=== PATIENT | female | born 1985 | race Caucasian/White ===

== ENCOUNTER 2017-12-11 00:35 | Emergency (ER) | payer OTHER, SELFPAY ==
[2017-12-11] VITALS (7 sets, daily range): BP systolic 112–135; BP diastolic 72–83; PULSE 81–112; RESP 13–26; TEMP 36.8; O2SAT 95–100; BMI 30.4
[2017-12-11] MEDS: SODIUM CHLORIDE 0.9% 1,000 ML 1000 ML IV (01:00)
--- NOTE | 2017-12-11 01:01 | ED_ITS ---
HPI - Overdose General Chief Complaint: Unresponsive Stated Complaint: Overdose Time Seen by Provider: 12/11/17 00:57 Source: family Mode of arrival: other (Stretcher) Limitations: physical limitation History of Present Illness HPI Narrative: Dropped off, unresponsive in car after heroin 32-year-old female dropped off after heroin overdose. When she has responded to Narcan she admits that she just used too much and this was unintentional. No suicidal intentions. Denies any other drugs. complaint: accidental overdose Related Data Home Medications Medication Instructions Recorded Confirmed lisinopril 5 mg PO DAILY 12/11/17 12/11/17 oxycodone 5 mg PO BID 12/11/17 12/11/17 Allergies Allergy/AdvReac Type Severity Reaction Status Date / Time Penicillins AdvReac Mild Rash Verified 12/11/17 01:12 Review of Systems Review of Systems Unable to obtain due to medical condition [facility] Social History Smoking Status: Current every day smoker substance use type: opiates and IV drugs Exam Initial Vital Signs Initial Vital Signs: Vital Signs Pulse Rate 88 12/11/17 00:35 Respiratory Rate 15 12/11/17 00:35 Const General: intoxicated appearing, lethargic and other (Cyanotic) Nutritional Appearance: average body habitus and well nourished HENMT Head: normal to inspection and normocephalic Face and sinus: normal facial exam Mouth: other (Tongue piercing) Eyes Pupils: pinpoint bilaterally Neck Neck: normal visual inspection and full ROM Resp Effort & Inspection: decreased respiratory effort Auscultation: clear to auscultation bilaterally Cardio Rate: regular rate Heart Sounds: S1 normal and S2 normal GI Palpation: soft, No guarding and No tender Skin General: No erythema Rashes: no rashes Other: Minimal track boggs. Neuro General: alert, awake and oriented x3 Course Orders Ordered: ED Orders 12/11/17 01:10 Acetaminophen Stat Complete Blood Count AUTO DIFF Stat Comprehensive Metabolic Panel Stat Ethanol (ETOH) Stat Salicylate Stat 12/11/17 02:47 Urine Drug Screen, Rapid Stat 12/11/17 03:48 Acetaminophen Stat Discontinued Medications Sodium Chloride (Normal Saline 0.9%) 1,000 mls @ 1,000 mls/hr IV BOLUS ONE Stop: 12/11/17 01:56 Last Infusion: 12/11/17 05:24 Dose: 0 mls/hr Admin: 12/11/17 01:00 Dose: 1,000 mls/hr Naloxone HCl (Narcan) 2 mg IV NOW ONE Stop: 12/11/17 00:58 Last Admin: 12/11/17 01:02 Dose: 2 mg Naloxone HCl (Narcan) 2 mg NASAL NOW ONE Stop: 12/11/17 01:05 Last Admin: 12/11/17 01:27 Dose: 2 mg Ondansetron HCl (Zofran) 4 mg IV NOW ONE Stop: 12/11/17 01:05 Last Admin: 12/11/17 01:28 Dose: 4 mg Vital Signs - 8 hr 12/11/17 00:35 12/11/17 01:06 12/11/17 01:23 Temperature 98.3 F Pulse Rate 88 112 H 102 H Respiratory Rate 15 26 H 21 Blood Pressure 129/83 H Blood Pressure [Right Arm] 129/83 H Pulse Oximetry 100 100 12/11/17 01:55 12/11/17 03:06 12/11/17 03:43 Temperature Pulse Rate 97 H 81 Respiratory Rate 16 14 Blood Pressure Blood Pressure [Right Arm] 112/72 135/83 H Pulse Oximetry 100 100 99 12/11/17 04:57 Temperature Pulse Rate 83 Respiratory Rate 13 Blood Pressure Blood Pressure [Right Arm] 134/79 H Pulse Oximetry 95 MDM - Overdose Lab Data Attestation: I reviewed the patient's lab results. Result diagrams: 12/11/17 01:10 12/11/17 01:10 Lab Results 12/11/17 12/11/17 12/11/17 Range/Units 01:10 01:10 02:47 WBC 7.9 (4.5-11.0) X10^3/uL RBC 3.98 L (4.0-5.2) X10^6/uL Hgb 12.8 (12.0-16.0) g/dL Hct 37.7 (36-46) % MCV 94.8 (80-100) fL MCH 32.2 (26-34) PG MCHC 34.0 (30-36) % RDW 12.9 (11.6-14.8) % Plt Count 306 (150-400) X10^3/uL Neut % (Auto) 60.6 (50-75) % Lymph % (Auto) 30.0 (25-40) % [place] % (Auto) 7.1 (3-14) % Eos % (Auto) 1.7 L (2-4) % Baso % (Auto) 0.6 (0-2) % Neut # (Auto) 4800 (8316-1666) /uL Sodium 142 (137-145) mmol/L Potassium 3.6 (3.4-5.1) mmol/L Chloride 102 (98-107) mmol/L Carbon Dioxide 27 (22-32) mmol/L BUN 10 (7-17) mg/dL Creatinine 0.70 (0.52-1.04) mg/dL Estimated GFR > 60.0 (>60) mL/min BUN/Creatinine Ratio 14.3 (6-22) Glucose 120 H (70-100) mg/dL Calcium 9.5 (8.4-10.2) mg/dL Total Bilirubin 0.7 (0.2-1.3) mg/dL AST 266 H (14-36) IU/L ALT 452 H (9-52) IU/L Alkaline Phosphatase 98 (38-126) U/L Total Protein 7.4 (6.3-8.2) g/dL Albumin 4.5 (3.5-5.0) g/dL Globulin 2.9 (1.7-4.1) g/dL Albumin/Globulin Ratio 1.6 (1.0-2.8) Salicylates < 1.0 (<20) mg/dL Urine Opiates Screen Positive H (Negative) Ur Oxycodone Screen Positive H (Negative) Urine Methadone Screen Negative (Negative) Acetaminophen < 10 L (10-30) ug/mL Ur Barbiturates Screen Negative (Negative) U Tricyclic Antidepress Negative (Negative) Ur Phencyclidine Scrn Negative (Negative) Ur Amphetamines Screen Negative (Negative) U Methamphetamines Scrn Negative (Negative) Ur MDMA Scrn (Ecstasy) Negative (Negative) U Benzodiazepines Scrn Negative (Negative) Urine Cocaine Screen Negative (Negative) U Marijuana (THC) Screen Negative (Negative) Ethyl Alcohol < 10 mg/dL 12/11/17 Range/Units 03:48 WBC (4.5-11.0) X10^3/uL RBC (4.0-5.2) X10^6/uL Hgb (12.0-16.0) g/dL Hct (36-46) % MCV (80-100) fL MCH (26-34) PG MCHC (30-36) % RDW (11.6-14.8) % Plt Count (150-400) X10^3/uL Neut % (Auto) (50-75) % Lymph % (Auto) (25-40) % [place] % (Auto) (3-14) % Eos % (Auto) (2-4) % Baso % (Auto) (0-2) % Neut # (Auto) (9969-0896) /uL Sodium (137-145) mmol/L Potassium (3.4-5.1) mmol/L Chloride (98-107) mmol/L Carbon Dioxide (22-32) mmol/L BUN (7-17) mg/dL Creatinine (0.52-1.04) mg/dL Estimated GFR (>60) mL/min BUN/Creatinine Ratio (6-22) Glucose (70-100) mg/dL Calcium (8.4-10.2) mg/dL Total Bilirubin (0.2-1.3) mg/dL AST (14-36) IU/L ALT (9-52) IU/L Alkaline Phosphatase (38-126) U/L Total Protein (6.3-8.2) g/dL Albumin (3.5-5.0) g/dL Globulin (1.7-4.1) g/dL Albumin/Globulin Ratio (1.0-2.8) Salicylates (<20) mg/dL Urine Opiates Screen (Negative) Ur Oxycodone Screen (Negative) Urine Methadone Screen (Negative) Acetaminophen < 10 L (10-30) ug/mL Ur Barbiturates Screen (Negative) U Tricyclic Antidepress (Negative) Ur Phencyclidine Scrn (Negative) Ur Amphetamines Screen (Negative) U Methamphetamines Scrn (Negative) Ur MDMA Scrn (Ecstasy) (Negative) U Benzodiazepines Scrn (Negative) Urine Cocaine Screen (Negative) U Marijuana (THC) Screen (Negative) Ethyl Alcohol mg/dL [facility] Narrative Medical decision making narrative: Patient initially given some Narcan nasally with minimal response. IV obtain responded well to 2 mg of Narcan IV. Patient placed on CO2 detector and monitored for number of hours. Liver enzymes noted to be elevated. Possible co ingestion of Tylenol or other opiate medications. 2nd Tylenol level is negative. Patient likely contracted hepatitis. Patient more awake alert clinically sober. I have discussed the events of this evening with her along with her laboratory results. I recommended she be tested for hepatitis and HIV. I also recommended that she stop using. Understands and she is grateful. Discharge Plan Departure Patient Disposition: Home, Self-Care Clinical Impression: Opioid overdose, Elevated liver enzymes Discharge Date/Time: 12/11/17 05:45 Instructions: DI for Hepatitis C, DI for Drug Overdose in Adults Activity Restrictions/Additional Instructions: *You have been diagnosed with heroin overdose, elevated liver enzymes *What to do: Liver enzymes can be a sign of hepatitis. It is strongly suggested that you get tested not sure dirty needles *Follow up with your primary care provider in 2-3 days *Return to ER if you should have any new, worsening or concerning symptoms Prescriptions: No Action lisinopril 5 mg Tablet 5 mg PO DAILY RF: 0 oxycodone tablet 5 mg PO BID RF: 0 Referrals: Oliver Ortgea MD [Primary Care Provider] -
[2017-12-11] MEDS: NALOXONE 1 MG/ML SYRINGE 2 MG IV (01:02)
--- NOTE | 2017-12-11 01:02 | PC.NURSE ---
pt found unresponsive in the car. carodid pulse present, resp with jaw lift. pt removed from car and onto a stretcher by staff. In narcan given. IV placed by megan meyer and narcan iv given. pt came to and began to vomit. pt given zofran iv. pt calmed down and asked if Raffy is present. pt now cooperative and calm.
--- NOTE | 2017-12-11 01:21 | PC.NURSE ---
RT met staff in trauma rm 2. preped and used ambu bag to ventilate pt while rn team leader started an IV and gave narcan. RT stopped ventilating when pt became responsive and attempted to sit up. ETCO2 placed.
[2017-12-11 01:27] LABS: Hemoglobin 12.8 g/dL (12.0-16.0); Red Blood Cell Count 3.98 X10^6/uL (4.0-5.2); Red Cell Distribution Width 12.9 % (11.6-14.8)
[2017-12-11] MEDS: NALOXONE 0.4 MG/ML VIAL 2 MG NASAL (01:27)
[2017-12-11] MEDS: ONDANSETRON 4 MG/2 ML INJ IV (01:28)
[2017-12-11 01:30] LABS: Add Manual Diff / Slide Review NO; Basophils Percent Auto 0.6 % (0-2); Eosinophils Percent Auto 1.7 % (2-4); Hematocrit 37.7 % (36-46); Mean Corpuscular Hemoglobin 32.2 PG (26-34); Mean Corpuscular Volume 94.8 fL (80-100); Monocytes Percent Auto 7.1 % (3-14); Neutrophils Absolute Auto 4800 /uL (3000-5900); Neutrophils Percent Auto 60.6 % (50-75); Platelet Count 306 X10^3/uL (150-400); White Blood Cell Count 7.9 X10^3/uL (4.5-11.0)
[2017-12-11 01:32] LABS: Acetaminophen < 10 ug/mL (10-30); Alanine Aminotransferase 452 IU/L (9-52); Albumin 4.5 g/dL (3.5-5.0); Albumin Globulin Ratio 1.6 (1.0-2.8); Alkaline Phosphatase 98 U/L (38-126); Aspartate Aminotransferase 266 IU/L (14-36); BUN Creatinine Ratio 14.3 (6-22); Bilirubin Total 0.7 mg/dL (0.2-1.3); Blood Urea Nitrogen 10 mg/dL (7-17); Calcium 9.5 mg/dL (8.4-10.2); Carbon Dioxide 27 mmol/L (22-32); Chloride 102 mmol/L (98-107); Estimated Glomerular Filt Rate > 60.0 mL/min (>60); Ethanol (ETOH) < 10 mg/dL; Globulin 2.9 g/dL (1.7-4.1); Glucose 120 mg/dL (70-100); HEMOLYSIS < 15 (0-50); Potassium 3.6 mmol/L (3.4-5.1); Sodium 142 mmol/L (137-145); Total Protein 7.4 g/dL (6.3-8.2)
[2017-12-11 01:33] LABS: Salicylate < 1.0 mg/dL (<20)
--- NOTE | 2017-12-11 02:45 | PC.NURSE ---
pt ambulated to restroom with slow but steady gate. reported no difficulties ambulating or voiding. provided a sample for lab.
[2017-12-11 02:57] LABS: Urine Amphetamines Negative (Negative); Urine Barbiturates Negative (Negative); Urine Benzodiazepines Negative (Negative); Urine Cocaine Negative (Negative); Urine MDMA Negative (Negative); Urine Methadone Negative (Negative); Urine Methamphetamines Negative (Negative); Urine Morphine/Opi cutoff 2000 Positive (Negative); Urine Oxycodone Positive (Negative); Urine Phencyclidine Negative (Negative); Urine Tetrahydrocannabinol Negative (Negative); Urine Tricyclic Antidepressant Negative (Negative)
[2017-12-11 04:17] LABS: Acetaminophen < 10 ug/mL (10-30)
--- NOTE | 2017-12-11 05:27 | PC.NURSE ---
pt is awake and requested getting up and moving around to stretch legs. pt has steady but slow gate. pt is appropriate and cooperative using please and thank yous with staff. pt requested going home. provider notified.
== END 2017-12-11 05:45 | disposition home or self-care (01) ==
PROVIDERS: Emergency Provider Emergency Medicine; Family Provider Family Medicine; PCP Family Medicine
DX: T40.2X1A Poisoning by other opioids, accidental (unintentional), initial encounter (principal); R74.8 Abnormal levels of other serum enzymes
CPT/HCPCS: 36415; 80053; 80305; 80320; 80329; 81025; 85025; 94770; 96361; 96374; 96375; 99283; 99284; G0480; J2310; J2405